=== PATIENT | male | born 1945 | race Caucasian/White ===

== ENCOUNTER → 2018-05-09 | Outpatient (CLI) | payer OTHER ==
[~2018-05-09] MED LIST: ASCO10007 PO; ASPI-1197 PO; CHONDROITIN PO; CINN500C PO; EYE SUPPLEMENT PO; GADODIAMIDE 10 MMOL/20 ML ML IV ONE; KRIL500C PO; MULTIVITAMIN PO; PUMP160C PO; UBID30CA11 PO; VITA100049 PO; VITAMIN B12 PO
== END | disposition home or self-care (01) ==
LOC: RAH 14:34
PROVIDERS: ATTEND Internal Medicine Critical Care Medicine
DX: R09.89 Other specified symptoms and signs involving the circulatory and respiratory systems (principal); R20.0 Anesthesia of skin
CPT/HCPCS: 70544; 70553; 93880; A9579

== ENCOUNTER → 2018-05-30 | Outpatient (CLI) | payer OTHER ==
[~2018-05-30] MED LIST changes: -GADODIAMIDE 10 MMOL/20 ML ML IV ONE
== END | disposition home or self-care (01) ==
LOC: SHCH 12:59
PROVIDERS: ATTEND Internal Medicine Cardiovascular Disease
DX: I10 Essential (primary) hypertension (principal)
CPT/HCPCS: 93306

== ENCOUNTER → 2018-06-29 | Outpatient (CLI) | payer OTHER | END | disposition home or self-care (01) | LOC: RAH 09:43 | PROVIDERS: ATTEND Internal Medicine Cardiovascular Disease | DX: Z13.6 Encounter for screening for cardiovascular disorders (principal) | CPT/HCPCS: 75571 ==

== ENCOUNTER → 2018-08-07 | Outpatient (CLI) | payer OTHER | END | disposition home or self-care (01) | LOC: RAH 07:41 | PROVIDERS: ATTEND Internal Medicine Cardiovascular Disease | DX: M47.22 Other spondylosis with radiculopathy, cervical region (principal); M48.02 Spinal stenosis, cervical region; M50.30 Other cervical disc degeneration, unspecified cervical region | CPT/HCPCS: 72141 ==

== ENCOUNTER 2018-08-22 08:57 | Observation (INO) | payer OTHER ==
[2018-08-20 12:07] VITALS: BP 139/68
[2018-08-20 12:29] LABS: APPEARANCE,URINE Clear (CLEAR); BILIRUBIN,URINE Negative (NEGATIVE); COLOR,URINE Yellow (YELLOW); GLUCOSE, URINE (UA) Negative (NEGATIVE); KETONES,URINE Negative (NEGATIVE); LEUKOCYTE ESTERASE ,URINE Small (NEGATIVE); NITRATE,URINE Negative (NEGATIVE); OCCULT BLOOD,URINE Negative (NEGATIVE); PROTEIN,URINE Negative (NEGATIVE); UROBILINOGEN,URINE 0.2 mg/dL (0.2-1.0)
[2018-08-20 12:31] LABS: BASOPHILS % (AUTO) 1.3 % (0.0-5.0); EOSINOPHILS % (AUTO) 4.6 % (0.0-8.0); HEMATOCRIT 38.6 % (42-54); LYMPHOCYTES % (AUTO) 28.5 % (21.0-51.0); MEAN CORPUSCULAR HEMOGLOBIN 30.1 pg (27.0-33.0); MEAN CORPUSCULAR HGB CONC 33.8 g/dL (32.0-36.0); MEAN CORPUSCULAR VOLUME 89.1 fL (79-99); MONOCYTES % (AUTO) 6.9 % (3.0-13.0); NEUTROPHILS % (AUTO) 58.7 % (40.0-77.0); PLATELET COUNT (AUTO) 167 K/uL (130-400); RED BLOOD CELL COUNT(AUTO) 4.33 MIL/uL (4.50-6.20); RED CELL DISTRIBUTION WIDTH 13.5 % (11.0-15.5); WHITE BLOOD COUNT (AUTO) 4.9 K/uL (4.8-10.8)
[2018-08-20 12:35] LABS: BACTERIA,URINE Rare /HPF (None Seen); RBC,URINE None Seen /HPF (0-1); SQUAMOUS EPITHELIAL CELL,UR Rare /HPF (0-2); WBC,URINE 0-1 /HPF (0-1)
[2018-08-20 12:37] LABS: CREATININE 1.1 mg/dL (0.5-1.5); POTASSIUM 4.2 mmol/L (3.5-5.1)
[2018-08-20 12:39] LABS: INR 0.94 (0.85-1.15); PARTIAL THROMBOPLASTIN TIME 29.3 SEC (26.3-35.5); PROTHROMBIN TIME 9.9 SEC (9.6-11.6)
[2018-08-22] VITALS (16 sets, daily range): BP systolic 119–139; BP diastolic 51–97
[~2018-08-22] VITALS: Ht 177.8 cm; Wt 90.8 kg
[~2018-08-22 08:57] MED LIST changes: +ACETAMINOPHEN 325 MG TAB PO PRN; +ATOR10TA69 PO; +BOSWELLIA; -CHONDROITIN PO; -CINN500C PO; +CYAN500011 PO; -EYE SUPPLEMENT PO; +GINK60TA7 PO; +GLUC-56 PO; +KRIL1CAP19 PO; -KRIL500C PO; +LEFL20TA18 PO; +LISI-613 PO; -MULTIVITAMIN PO; +NAPR-1192 PO; +OMEP20TA25 PO; -PUMP160C PO; +SAW PALMETTO PO; +SODIUM CHLORIDE 0.9% 500ML 500 ML IV SCH; +TAMS0.4C32 PO; +TURMERIC/CURCUMIN PO; +UBID100C45 PO; -UBID30CA11 PO; -VITA100049 PO; -VITAMIN B12 PO; +[UNRECOGNIZED DRUG - OTHER] PO
[2018-08-22] MEDS ORDERED: SODIUM CHLORIDE 0.9% 1000ML 1,000 ML IV ONE (09:10)
[2018-08-22] MEDS ORDERED: CINN1CAP PO (09:52)
[2018-08-22] MEDS ORDERED: HYDR12.54 PO (09:53)
--- NOTE | 2018-08-22 15:56 | NUR ---
report report given to Dory Fleming RN, pt still waiting to be taken to petroleum refinery laborer for procedure.
[2018-08-22] MEDS ORDERED: HEPARIN SODIUM 1000UNIT/ML 10ML VIAL ONE (16:12)
[2018-08-22] MEDS ORDERED: IOHEXOL-350 50ML VIAL IV ONE (16:12)
[2018-08-22] MEDS ORDERED: IOHEXOL 350 MG/ML 100ML INFUS..BTL IV ONE (16:12)
[2018-08-22] MEDS ORDERED: SODIUM BICARB 50MEQ 50ML VIAL ONE (16:12)
[2018-08-22] MEDS ORDERED: NITROGLYCERIN 5 MG/ML 10 ML VIAL IV ONE (16:12)
[2018-08-22] MEDS ORDERED: LIDOCAINE HCL-MPF 2% 5ML VIAL ONE (16:12)
[2018-08-22] MEDS ORDERED: MIDAZOLAM HCL 1 MG/ML 2ML VIAL ONE (16:44)
[2018-08-22] MEDS ORDERED: MEPERIDINE-PF 25 MG/ML SYG ONE (16:44)
[2018-08-22] MEDS ORDERED: IOHEXOL-350 75 ML VIAL IV ONE (17:15)
[2018-08-22] MEDS: SODIUM CHLORIDE 0.9% 1000ML 1,000 ML IV SCH (17:34)
[2018-08-22] MEDS ORDERED: ACETAMINOPHEN-CODEINE 300/30MG TAB PO PRN ×2 (17:45)
[2018-08-22] MEDS ORDERED: ONDANSETRON HCL 4 MG/2 ML VIAL IVP PRN (17:45)
[2018-08-22] MEDS ORDERED: TICAGRELOR 90 MG TABLET ONE (18:00)
--- NOTE | 2018-08-22 19:38 | NUR ---
REPORT GIVEN TO NURSE HILARY [id number]. PT AAOX3, DRESSING TO RT GROIN IS D/I. NO C/O CHEST PAIN OR DISTRESS. PERSONAL BELONGINGS TAKEN AT BEDSIDE WITH SPOUSE.
--- NOTE | 2018-08-22 20:15 | NUR ---
PT REPORT RECEIVED BY IRMA FROM [employer] DIRECTOR. PT ARRIVED VIA STRETCHED. STABLE. NO DISTRESS NOTED. VERIFIED SITE WITH [employer] DIRECTOR TEAM. RIGHT GROIN PERCLOSE DRESSING IN PLACE. NO TENDERNESS NOTED. NO PAIN STATED. NO DISCHARGE AT SITE. WILL CONTINUE TO MONITOR. STARTED IV FLUIDS PER DOCTORS ORDERS OF 150ML.HR
[2018-08-22] MEDS ORDERED: ONDANSETRON HCL 4 MG/2 ML VIAL IV PRN (20:30)
[2018-08-22] MEDS ORDERED: ACETAMINOPHEN 325 MG TAB PO PRN (20:30)
[2018-08-22] MEDS: TICAGRELOR 90 MG TABLET PO SCH (21:00)
--- NOTE | 2018-08-22 21:00 | NUR ---
PT ASSESSMENT- IN BED, NO DISTRESS NOTED .AAOX3. PERRLA. UPPER EXTREMITY IS STRONG. LOWER EXTREMITY WEAKNESS. AT BEDISDE. PT HAD MEDICATIONS AT BEDSIDE. RIGHT GROIN INCISION INTACT. PT AWARE OF BEDREST UNTIL THE AM AND IV FLUIDS UNTIL THE AM. USING URINAL NEEDED. ABLE TO TAKE MEDICATIONS DIRECTED. PT STATES NO PAIN. ACTIVE BOWEL SOUNDS.
[2018-08-22] MEDS: FAMOTIDINE/PF 20 MG/2 ML VIAL IV SCH (21:11)
[2018-08-22] MEDS: ALPRAZOLAM 0.5 MG TABLET PO SCH (21:11)
[2018-08-23] MEDS: SODIUM CHLORIDE 0.9% 1000ML 1,000 ML IV SCH (00:24)
[2018-08-23 03:55] LABS: HEMATOCRIT 32.5 % (42-54); MEAN CORPUSCULAR HEMOGLOBIN 30.9 pg (27.0-33.0); MEAN CORPUSCULAR HGB CONC 34.8 g/dL (32.0-36.0); MEAN CORPUSCULAR VOLUME 88.7 fL (79-99); PLATELET COUNT (AUTO) 137 K/uL (130-400); RED BLOOD CELL COUNT(AUTO) 3.66 MIL/uL (4.50-6.20); RED CELL DISTRIBUTION WIDTH 13.5 % (11.0-15.5); WHITE BLOOD COUNT (AUTO) 4.8 K/uL (4.8-10.8)
[2018-08-23 04:05] VITALS: BP 137/71
[2018-08-23 04:11] LABS: POTASSIUM 4.3 mmol/L (3.5-5.1)
[2018-08-23 08:03] VITALS: BP 134/62
[2018-08-23] MEDS: FAMOTIDINE/PF 20 MG/2 ML VIAL IV SCH (08:58)
[2018-08-23] MEDS: TICAGRELOR 90 MG TABLET PO SCH (08:58)
[2018-08-23] MEDS: ALPRAZOLAM 0.5 MG TABLET PO SCH (08:58)
[2018-08-23] MEDS ORDERED: ASPIRIN 81MG TAB.CHEW PO SCH (09:00)
[2018-08-23] MEDS ORDERED: PANTOPRAZOLE SODIUM 40 MG TABLET.DR PO SCH (09:00)
[2018-08-23] MEDS ORDERED: TAMSULOSIN HCL 0.4 MG CAP.ER.24H PO SCH (09:00)
[2018-08-23] MEDS ORDERED: CINNAMON BARK PO SCH (09:00)
[2018-08-23] MEDS ORDERED: CHROMIUM PICOLIN PO SCH (09:00)
[2018-08-23] MEDS ORDERED: LISINOPRIL 20 MG TABLET PO SCH (09:00)
[2018-08-23] MEDS ORDERED: NAPROXEN 250 MG TAB PO SCH (09:00)
[2018-08-23] MEDS ORDERED: HYDROCHLOROTHIAZIDE 25 MG TABLET PO SCH (09:00)
[2018-08-23] MEDS ORDERED: LEFLUNOMIDE 20 MG PO SCH (09:00)
[2018-08-23] MEDS ORDERED: ATORVASTATIN CALCIUM 10 MG TABLET PO SCH (09:00)
[2018-08-23] MEDS ORDERED: TICA90TA PO (09:26)
[2018-08-23 11:08] VITALS: BP 130/66
--- NOTE | 2018-08-23 11:37 | NUR ---
Patient discharged in stable condition. Patient given discharge instructions on all medications, appointment times and how to take new medications, side effects that may occur and when to call his Primary Care provider and when to call 911. IV removed from left arm. Tolerated well. Dressing Site to Right groin removed. dry and intact. No s/s of bleeding. Instructed if bleeding occurs apply pressure and come back to ER or call 911. Instructed on s/s of infections. No other questions or concerns.
== END 2018-08-23 11:56 | disposition home or self-care (01) ==
LOC: DAH 08:57 → DAHIP 08:58 → DAH 08:58 → 2DH 20:14
PROVIDERS: ADMIT Internal Medicine; ATTEND Internal Medicine
DX: I25.10 Atherosclerotic heart disease of native coronary artery without angina pectoris (principal); I25.82 Chronic total occlusion of coronary artery; E78.5 Hyperlipidemia, unspecified; I10 Essential (primary) hypertension; Z82.0 Family history of epilepsy and other diseases of the nervous system; Z82.3 Family history of stroke; Z82.49 Family history of ischemic heart disease and other diseases of the circulatory system; Z82.5 Family history of asthma and other chronic lower respiratory diseases; Z83.3 Family history of diabetes mellitus; Z79.01 Long term (current) use of anticoagulants
CPT/HCPCS: 36415 ×2; 71045; 80048 ×2; 80061; 81001; 85025; 85027; 85610; 85730; 93005; 93458; 96374; 96376; A4606; C1760; C1769; C1874 ×2; C1887; C1894; C9600 ×2; G0378 ×27; J1644 ×2; J2175; J2250; J3490 ×5; J7030 ×2; Q9965; Q9967 ×3; 99156; 99157

== ENCOUNTER 2018-09-24 05:47 | Observation (INO) | payer OTHER ==
[2018-09-21 11:11] VITALS: BP 121/61
[2018-09-21 11:14] LABS: BASOPHILS % (AUTO) 1.2 % (0.0-5.0); BILIRUBIN,URINE Negative (NEGATIVE); COLOR,URINE Yellow (YELLOW); GLUCOSE, URINE (UA) Negative (NEGATIVE); HEMATOCRIT 35.5 % (42-54); KETONES,URINE Negative (NEGATIVE); LEUKOCYTE ESTERASE ,URINE Negative (NEGATIVE); LYMPHOCYTES % (AUTO) 38.3 % (21.0-51.0); MEAN CORPUSCULAR HEMOGLOBIN 30.1 pg (27.0-33.0); MEAN CORPUSCULAR HGB CONC 34.2 g/dL (32.0-36.0); MEAN CORPUSCULAR VOLUME 88.2 fL (79-99); MONOCYTES % (AUTO) 8.3 % (3.0-13.0); NEUTROPHILS % (AUTO) 47.2 % (40.0-77.0); NITRATE,URINE Negative (NEGATIVE); NUCLEATED RED BLOOD CELLS 0.1 % (0.0-0.19); OCCULT BLOOD,URINE Negative (NEGATIVE); PLATELET COUNT (AUTO) 147 K/uL (130-400); PROTEIN,URINE Negative (NEGATIVE); RED BLOOD CELL COUNT(AUTO) 4.03 MIL/uL (4.50-6.20); RED CELL DISTRIBUTION WIDTH 13.2 % (11.0-15.5); UROBILINOGEN,URINE 0.2 mg/dL (0.2-1.0); WHITE BLOOD COUNT (AUTO) 4.2 K/uL (4.8-10.8)
[2018-09-21 11:25] LABS: CREATININE 1.1 mg/dL (0.5-1.5); POTASSIUM 4.1 mmol/L (3.5-5.1)
[2018-09-21 11:29] LABS: APPEARANCE,URINE CLEAR (CLEAR)
[2018-09-21 11:45] LABS: INR 0.92 (0.85-1.15); PARTIAL THROMBOPLASTIN TIME 29.6 SEC (26.3-35.5); PROTHROMBIN TIME 9.7 SEC (9.6-11.6)
[~2018-09-24] VITALS: Ht 175.3 cm; Wt 90.4 kg
[2018-09-24] VITALS (11 sets, daily range): BP systolic 97–131; BP diastolic 59–70
[~2018-09-24 05:47] MED LIST changes: -ACETAMINOPHEN 325 MG TAB PO PRN; +ASPI-1181 PO; -ASPI-1197 PO; +CINN1CAP PO; +HYDR12.54 PO; -SODIUM CHLORIDE 0.9% 500ML 500 ML IV SCH; +TICA90TA PO; +TYLENOL ARTHRITIS PO; +[UNRECOGNIZED DRUG - OTHER] PO
[2018-09-24] MEDS ORDERED: SODIUM CHLORIDE 0.9% 1000ML 1,000 ML IV ONE (06:06)
--- NOTE | 2018-09-24 06:15 | NUR ---
RECEIVED AWAKE,NO COMPLAINTS ,IN GOOD SPIRITS,,,ACCOMPANIED BY SPOUSE,,MADE COMFORTABLE IN BED ...,,INSTRUCTIONS PRE AND POST CATH ,AWARE TO REMAIN FLAT AND NOT PICK HEAD UP UNTIL INSTRUCTED BY NURSE AFTER PROCEDURE,VERBALIZES UNDERSTANDING ,WITH WEAKNESS TO LT HAND ,STATES DUE TO ARTHRITIS,COMFORTABLE ,CALL FUNEZ IN REACH Addendum: 09/24/18 at 0743 by SOY LUX LVN LVN NOTICED FEET COOL AND PALE ON ASSESSMENT,,PALPABLE PULES
--- NOTE | 2018-09-24 07:20 | NUR ---
STARTED IV TO RT FOREARM WITH #22 BY RICK HINOJOSA
[2018-09-24] MEDS ORDERED: HEPARIN SODIUM 1000UNIT/ML 10ML VIAL ONE (07:21)
[2018-09-24] MEDS ORDERED: SODIUM BICARB 50MEQ 50ML VIAL ONE (07:21)
[2018-09-24] MEDS ORDERED: IOHEXOL 350 MG/ML 100ML INFUS..BTL IV ONE (07:22)
[2018-09-24] MEDS ORDERED: LIDOCAINE HCL 2% 20ML ONE (07:22)
[2018-09-24] MEDS ORDERED: NITROGLYCERIN 5 MG/ML 10 ML VIAL IV ONE (07:22)
--- NOTE | 2018-09-24 07:29 | NUR ---
TO DRAW TENDER
[2018-09-24] MEDS ORDERED: MIDAZOLAM HCL 1 MG/ML 2ML VIAL ONE ×2 (07:47→08:02)
[2018-09-24] MEDS ORDERED: MEPERIDINE-PF 25 MG/ML SYG ONE ×2 (07:47→08:02)
[2018-09-24] MEDS ORDERED: METOPROLOL TARTRATE 1 MG/ML 5ML VIAL IV ONE (08:13)
[2018-09-24] MEDS ORDERED: AMIODARONE HCL 50 MG/ML 3 ML VIAL ONE (08:16)
[2018-09-24] MEDS: SODIUM CHLORIDE 0.9% 1000ML 1,000 ML IV SCH ×2 (08:34→18:34)
[2018-09-24] MEDS ORDERED: ATROPINE SULFATE 0.1 MG/ML 10 ML SYG IVP ONE (08:35)
[2018-09-24] MEDS ORDERED: PROPOFOL 10 MG/ML 20ML VIAL IV ONE (08:35)
[2018-09-24] MEDS ORDERED: ACETAMINOPHEN 325 MG TAB PO PRN (08:45)
[2018-09-24] MEDS ORDERED: ACETAMINOPHEN-CODEINE 300/30MG TAB PO PRN (08:45)
[2018-09-24] MEDS: SAW PALMETTO 1200 MG PO SCH (09:00)
[2018-09-24] MEDS: HYDROCHLOROTHIAZIDE 25 MG TABLET PO SCH (09:00)
[2018-09-24] MEDS: TAMSULOSIN HCL 0.4 MG CAP.ER.24H PO SCH (09:00)
[2018-09-24] MEDS: COQ PO SCH (09:00)
[2018-09-24] MEDS: [UNRECOGNIZED DRUG - OTHER] PO SCH (09:00)
[2018-09-24] MEDS: ATORVASTATIN CALCIUM 10 MG TABLET PO SCH (09:00)
[2018-09-24] MEDS: LISINOPRIL 20 MG TABLET PO SCH (09:00)
--- NOTE | 2018-09-24 09:15 | NUR ---
PT ARRIVED FROM [facility],POST PTCA WITH STENT TO PROXIMAL RCA. RIGHT GROIN NOTED SOFT, NO BLEEDING, NO HEMATOMA. PULSES PALPABLE. SKIN WARM TO TOUCH. POC DISCUSSED WITH PT AND SPOUSE. BEDREST X 6 HRS. WILL CONT TO MONITOR. TELE WITH SB 58. PER REPORT, PT WENT INTO A-FIB POST STENT PLACEMENT. PRIOR TO COMING TO ROOM, PT WAS CARDIOVERTED AT [facility]. WILL CONT TO MONITOR.
[2018-09-24] MEDS: RIVAROXABAN 20 MG TABLET PO SCH (11:11)
[2018-09-24] MEDS: PANTOPRAZOLE SODIUM 40 MG TABLET.DR PO SCH (11:12)
--- NOTE | 2018-09-24 19:30 | NUR ---
NOTIFIED iNa BRIGGS NP ABOUT PT PENDING VISIT FROM DR. DAVIS.
[2018-09-24] MEDS: TICAGRELOR 90 MG TABLET PO SCH (20:03)
--- NOTE | 2018-09-24 21:00 | NUR ---
PT RIGHT GROIN SITE IS SOFT, NON TENDER. NO DRAINAGE NOTED. NO PAIN STATED. BEDREST IS OVER. PT IS ABLE TO AMBULATE WITHOUT ASSISTANCE. CONTINUES ON IV FLUIDS AT 100ML/HR UNTIL THE AM. RED DRAINAGE WHEN PT GOT OUT OF BED, IT WAS NOTED TO BE COMING FROM HIS SCROTUM. PT STATES AT TIMES DUE TO MEDICATIONS HE GETS BLISTERS THAT LEAD TO RED DRAINAGE IN HIS BELKYS AREA. STATES NO DISCOMFORT OR PAIN. OFFERED TO APPLY CREAM TO ALLEVIATE REDNESS, PT REFUSED. OTHERWISE, PT IS STABLE. CLEAR LUNG SOUNDS. ACTIVE BOWEL SOUNDS. AAOX3. PERRLA. PENDING DISCHARGE IN THE AM. CURRENTLY SINUS JESSE. NO EPISODES OF AFIB.
[2018-09-25 03:49] LABS: HEMATOCRIT 31.5 % (42-54); MEAN CORPUSCULAR HEMOGLOBIN 30.8 pg (27.0-33.0); MEAN CORPUSCULAR HGB CONC 34.5 g/dL (32.0-36.0); MEAN CORPUSCULAR VOLUME 89.4 fL (79-99); PLATELET COUNT (AUTO) 135 K/uL (130-400); RED BLOOD CELL COUNT(AUTO) 3.53 MIL/uL (4.50-6.20); RED CELL DISTRIBUTION WIDTH 13.3 % (11.0-15.5); WHITE BLOOD COUNT (AUTO) 5.7 K/uL (4.8-10.8)
[2018-09-25 03:55] VITALS: BP 140/70
[2018-09-25 04:10] LABS: CREATININE 1.1 mg/dL (0.5-1.5); POTASSIUM 3.8 mmol/L (3.5-5.1)
[2018-09-25] MEDS: SODIUM CHLORIDE 0.9% 1000ML 1,000 ML IV SCH (04:41)
[2018-09-25] MEDS ORDERED: POTASSIUM CHLORIDE 20 MEQ ERTAB PO PRN (05:00)
[2018-09-25] MEDS ORDERED: POTASSIUM CHLORIDE 20MEQ/100ML 100 ML IV PRN (05:00)
[2018-09-25] MEDS ORDERED: LIDOCAINE HCL-MPF 1% 2ML VIAL IVP PRN (05:00)
[2018-09-25] MEDS ORDERED: POTASSIUM CHLORIDE 10% ELIXIR 20 MEQ/15 ML UDCUP PO PRN (05:00)
[2018-09-25] MEDS ORDERED: POTASSIUM CHLORIDE 20 MEQ ERTAB PO ONE (05:34)
--- NOTE | 2018-09-25 07:36 | NUR ---
DR. Matty MATA IN ROOM ASSESSING/SPEAKING WITH PT. RE:PLAN OF CARE. QUESTIONS ANSWERED BY DR. Matty MATA.
[2018-09-25 07:47] VITALS: BP 130/71
[2018-09-25] MEDS: ATORVASTATIN CALCIUM 10 MG TABLET PO SCH (08:49)
[2018-09-25] MEDS: TAMSULOSIN HCL 0.4 MG CAP.ER.24H PO SCH (08:49)
[2018-09-25] MEDS: LISINOPRIL 20 MG TABLET PO SCH (08:49)
[2018-09-25] MEDS: HYDROCHLOROTHIAZIDE 25 MG TABLET PO SCH (08:49)
[2018-09-25] MEDS: RIVAROXABAN 20 MG TABLET PO SCH (08:49)
[2018-09-25] MEDS: PANTOPRAZOLE SODIUM 40 MG TABLET.DR PO SCH (08:49)
[2018-09-25] MEDS: TICAGRELOR 90 MG TABLET PO SCH (08:50)
--- NOTE | 2018-09-25 08:50 | NUR ---
RESTING IN BED WITH HOB AT 30 DEGREES, RESP.'S EVEN AND UNLABORED. AAOX3. DENIES ANY C/O SOB, DENIES ANY CURRENT PAIN. ABD SOFT WITH (+) BOWEL SOUNDS, DENIES ANY C/O N/V. RIGHT GROIN WITH LIGHT DRSG IN PLACE, D/I; AREA SOFT, NO ECCHYMOSIS OR HEMATOMA NOTED. VOIDS, W/O C/O. COMPLETE ASSESSMENT DONE. CALL LIGHT WITHIN REACH, VERBALIZED ABILITY TO USE. BED LOW, SIDE RAILS UP X2.
[2018-09-25] MEDS: [UNRECOGNIZED DRUG - OTHER] PO SCH (08:54)
[2018-09-25] MEDS: SAW PALMETTO 1200 MG PO SCH (08:54)
[2018-09-25] MEDS: COQ PO SCH (08:54)
[2018-09-25] MEDS ORDERED: RIVA20TA PO (10:58)
[2018-09-25] MEDS ORDERED: TICA90TA PO (10:58)
[2018-09-25 11:21] VITALS: BP 127/62
--- NOTE | 2018-09-25 12:30 | NUR ---
HL REMOVED, CATHETER INTACT. DISCHARGE INSTRUCTIONS GIVEN, VERBALIZED UNDERSTANDING.
--- NOTE | 2018-09-25 12:40 | NUR ---
DISCHARGED HOME VIA W/C WITH BELONGINGS INCLUDING PHONE AND IPAD; ACCOMPANIED BY THIS NURSE. ASSISTED TO VEHICLE BY THIS NURSE.
== END 2018-09-25 12:54 | disposition home or self-care (01) ==
LOC: DAH 05:47 → DAHIP 05:48 → 2DH 09:15
PROVIDERS: ADMIT Internal Medicine Cardiovascular Disease; ATTEND Internal Medicine Cardiovascular Disease
DX: I25.10 Atherosclerotic heart disease of native coronary artery without angina pectoris (principal); I25.82 Chronic total occlusion of coronary artery; I48.0 Paroxysmal atrial fibrillation; N40.0 Benign prostatic hyperplasia without lower urinary tract symptoms; K21.9 Gastro-esophageal reflux disease without esophagitis; Z79.899 Other long term (current) drug therapy
CPT/HCPCS: 36415 ×2; 80048 ×2; 81003; 85025; 85027; 85610; 85730; 92960; 93005 ×2; 93454; C1760 ×2; C1769; C1874; C1887; C1894; C9600; G0378 ×31; J0282; J0461; J1644 ×2; J2175 ×2; J2250 ×2; J2704; J3490 ×4; J7030 ×3; Q9965; Q9967; 99156; 99157

== ENCOUNTER → 2019-02-20 | Outpatient (CLI) | payer OTHER ==
[~2019-02-20] MED LIST changes: +RIVA20TA PO
== END | disposition home or self-care (01) ==
LOC: RAH 10:53
PROVIDERS: ATTEND Internal Medicine Critical Care Medicine
DX: S92.512A Displaced fracture of proximal phalanx of left lesser toe(s), initial encounter for closed fracture (principal); X58.XXXA Exposure to other specified factors, initial encounter; Y93.89 Activity, other specified; Y92.89 Other specified places as the place of occurrence of the external cause; Y99.8 Other external cause status
CPT/HCPCS: 73630

== ENCOUNTER → 2019-02-25 | Outpatient (CLI) | payer OTHER ==
[~2019-02-25] MED LIST changes: +GADODIAMIDE 10 MMOL/20 ML VIAL IV ONE
== END | disposition home or self-care (01) ==
LOC: RAH 13:41
PROVIDERS: ATTEND Internal Medicine Critical Care Medicine
DX: L03.116 Cellulitis of left lower limb (principal)
CPT/HCPCS: 73720; A9579

== ENCOUNTER → 2019-03-01 | Outpatient (CLI) | payer OTHER ==
[~2019-03-01] MED LIST changes: -GADODIAMIDE 10 MMOL/20 ML VIAL IV ONE
== END | disposition home or self-care (01) ==
LOC: RAH 14:17
PROVIDERS: ATTEND Internal Medicine Critical Care Medicine
DX: M86.179 Other acute osteomyelitis, unspecified ankle and foot (principal)
CPT/HCPCS: 93922; 93926

== ENCOUNTER → 2020-03-23 | Outpatient (CLI) | payer OTHER ==
[~2020-03-23] MED LIST changes: +ASCO100031 PO; -ASCO10007 PO; -ASPI-1181 PO; +ASPI-1443 PO; +IOHEXOL-350 50ML VIAL IV ONE
== END | disposition home or self-care (01) ==
LOC: RAH 07:29
PROVIDERS: ATTEND Internal Medicine Cardiovascular Disease
DX: I65.29 Occlusion and stenosis of unspecified carotid artery (principal); I10 Essential (primary) hypertension
CPT/HCPCS: 70496; 70498; Q9967

== ENCOUNTER → 2020-03-26 | Outpatient (CLI) | payer OTHER ==
[~2020-03-26] MED LIST changes: -IOHEXOL-350 50ML VIAL IV ONE
== END | disposition home or self-care (01) ==
LOC: SHCH 13:57
PROVIDERS: ATTEND Internal Medicine Cardiovascular Disease
DX: R60.9 Edema, unspecified (principal)
CPT/HCPCS: 93925; 93970

== ENCOUNTER 2024-03-01 07:49 | Day surgery (SDC) | payer OTHER ==
[2024-02-28 09:42] VITALS: BP 139/68; PULSE 50; RESP 19
[2024-02-28 09:54] LABS: BASOPHILS # (AUTO) 0.03 K/uL (0.00-0.20); BASOPHILS % (AUTO) 0.6 % (0.0-5.0); EOSINOPHILS # (AUTO) 0.18 K/uL (0.00-0.70); EOSINOPHILS % (AUTO) 3.3 % (0.0-8.0); HEMATOCRIT 39.2 % (42-54); IMMATURE GRANULOCYTE ABSOLUTE 0.01 K/uL (0-1); LYMPHOCYTES # (AUTO) 2.3 K/uL (1.0-4.8); LYMPHOCYTES % (AUTO) 42.5 % (21.0-51.0); MEAN CORPUSCULAR HGB CONC 34.4 g/dL (32.0-36.0); MEAN CORPUSCULAR VOLUME 90.1 fL (79-99); MONOCYTES # (AUTO) 0.4 K/uL (0.1-1.0); MONOCYTES % (AUTO) 6.6 % (3.0-13.0); NEUTROPHILS # (AUTO) 2.6 K/uL (1.8-7.7); NEUTROPHILS % (AUTO) 46.8 % (40.0-77.0); PLATELET COUNT (AUTO) 178 K/uL (130-400); RED BLOOD CELL COUNT(AUTO) 4.35 MIL/uL (4.50-6.20); RED CELL DISTRIBUTION WIDTH 12.7 % (11.0-15.5); WHITE BLOOD COUNT (AUTO) 5.4 K/uL (4.8-10.8)
[2024-02-28 10:03] LABS: APPEARANCE,URINE CLEAR (CLEAR); BILIRUBIN,URINE NEGATIVE (NEGATIVE); COLOR,URINE LIGHT-YELLOW (YELLOW); GLUCOSE, URINE (UA) NEGATIVE (NEGATIVE); KETONES,URINE NEGATIVE (NEGATIVE); LEUKOCYTE ESTERASE ,URINE NEGATIVE Leu/uL (NEGATIVE); NITRATE,URINE NEGATIVE (NEGATIVE); OCCULT BLOOD,URINE NEGATIVE (NEGATIVE); PH,URINE 5.5 (5.0-8.0); PROTEIN,URINE NEGATIVE (NEGATIVE); UROBILINOGEN,URINE 0.2 mg/dL (0.2-1.0)
[2024-02-28 10:08] LABS: CREATININE 1.1 mg/dL (0.5-1.3)
[2024-02-28 10:15] LABS: INR 0.97 (0.85-1.15); PROTHROMBIN TIME 10.5 SEC (9.6-11.6)
[2024-02-28 10:17] LABS: PARTIAL THROMBOPLASTIN TIME 28.7 SEC (26.3-35.5)
[2024-02-28 10:18] LABS: ADD UA MICROSCOPIC NO
[2024-02-28 10:23] LABS: B-TYPE NATRIURETIC PEPTIDE 8 pg/mL (0-100)
[~2024-03-01] VITALS: Ht 179.1 cm; Wt 93.5 kg
[2024-03-01] VITALS (8 sets, daily range): BP systolic 111–143; BP diastolic 58–83; PULSE 45–59; RESP 14–18
[~2024-03-01 07:49] MED LIST changes: +APIX5TAB PO; -ASCO100031 PO; -ATOR10TA69 PO; +ATOR40TA69 PO; -BOSWELLIA; -CINN1CAP PO; -CYAN500011 PO; +DOXA2TAB2 PO; +FINA5TAB41 PO; -GINK60TA7 PO; -GLUC-56 PO; -HYDR12.54 PO; -KRIL1CAP19 PO; -LEFL20TA18 PO; +LEVO50TA11 PO; -LISI-613 PO; +METO-408 PO; -NAPR-1192 PO; -OMEP20TA25 PO; -RIVA20TA PO; -SAW PALMETTO PO; +TADA20TA70 PO; -TAMS0.4C32 PO; -TICA90TA PO; -TURMERIC/CURCUMIN PO; -TYLENOL ARTHRITIS PO; -UBID100C45 PO; -[UNRECOGNIZED DRUG - OTHER] PO; -[UNRECOGNIZED DRUG - OTHER] PO
[2024-03-01] MEDS: 0.9%NACL 1000ML 1,000 ML IV SCH (09:22)
[2024-03-01] MEDS ORDERED: SODIUM BICARB 50MEQ 50ML VIAL 50 ML ONE (12:48)
[2024-03-01] MEDS ORDERED: LIDOCAINE HCL 400MG/20ML VIAL ONE (12:48)
[2024-03-01] MEDS ORDERED: IOHEXOL 350 MG/ML 100ML INFUS..BTL IV ONE ×2 (12:48→12:51)
[2024-03-01] MEDS ORDERED: IOHEXOL-350 50ML VIAL IV ONE (12:48)
[2024-03-01] MEDS ORDERED: HEPARIN 10,000 UNIT/10ML (1,000 UNIT/ML) VIAL ONE (12:48)
[2024-03-01] MEDS ORDERED: NITROGLYCERIN 50MG VIAL ONE (12:54)
[2024-03-01] MEDS ORDERED: NICARDIPINE 25MG INJ IV ONE (13:10)
[2024-03-01] MEDS ORDERED: MIDAZOLAM HCL 1 MG/ML 2ML VIAL ONE ×3 (13:10→14:01)
[2024-03-01] MEDS ORDERED: MEPERIDINE-PF 25 MG/ML SYG ONE ×3 (13:10→14:01)
[2024-03-01] MEDS ORDERED: ATROPINE 1MG SYG IVP ONE (13:25)
[2024-03-01] MEDS ORDERED: CLOPIDOGREL 300MG TAB ONE (14:47)
[2024-03-01] MEDS ORDERED: 0.9%NACL 1000ML 1,000 ML IV SCH (15:00)
[2024-03-01] MEDS ORDERED: CLOP-31 PO (17:14)
== END 2024-03-01 19:30 | disposition home or self-care (01) ==
LOC: DAH 07:49
PROVIDERS: ATTEND Internal Medicine Cardiovascular Disease
DX: I25.118 Atherosclerotic heart disease of native coronary artery with other forms of angina pectoris (principal); I10 Essential (primary) hypertension; K21.9 Gastro-esophageal reflux disease without esophagitis; Z86.73 Personal history of transient ischemic attack (TIA), and cerebral infarction without residual deficits; M19.90 Unspecified osteoarthritis, unspecified site; Z85.828 Personal history of other malignant neoplasm of skin; Z79.01 Long term (current) use of anticoagulants; Z79.82 Long term (current) use of aspirin; Z79.899 Other long term (current) drug therapy
CPT/HCPCS: 80048; 83880; 85025; 85610; 85730; 81003; 36415; 71045; 93005; 93458; 93306; C9600 ×2; Q9965 ×2; C1887 ×4; C1769 ×2; C1725 ×2; C1874 ×3; A4649; C1894; A4663; J3490 ×4; J7030; J0461; J1644 ×2; J2250 ×3; J2175 ×3; Q9967 ×2; A4215; A4222; A4221; A4216; A4606; A4223 ×3; 99156; 99157

== ENCOUNTER → 2025-03-17 | Outpatient (CLI) | payer OTHER ==
[~2025-03-17] MED LIST changes: -ASPI-1443 PO; +CLOP-31 PO; -TADA20TA70 PO
--- NOTE | 2025-03-18 07:00 | HMCIMG ---
EXAMINATION: ULTRASOUND OF THE RETROPERITONEUM. CLINICAL HISTORY: Pain. COMPARISON: None. TECHNIQUE: Real-time grayscale ultrasound images of the kidneys. FINDINGS: The kidneys are normal in caliber, the right kidney measures 10.8 x 4.8 x 3.8 cm and the left kidney measures 10.5 x 6.1 x 4.6 cm in its craniocaudal, AP, and transverse dimensions respectively. There is normal renal cortical thickness, and cortical echogenicity. There is no renal calculus or hydronephrosis. There is a simple cortical cyst that measures 1.6 x 1.4 x 1.7 cm in the left renal mid pole. The urinary bladder is partially distended with normal wall thickness (0.54 cm). There are no calculi in the urinary bladder. IMPRESSION: Left renal simple cortical cyst. No hydronephrosis. /[place]att[place]
== END | disposition home or self-care (01) ==
LOC: RAH 15:00
PROVIDERS: ATTEND Internal Medicine Critical Care Medicine
DX: N28.1 Cyst of kidney, acquired (principal); R10.9 Unspecified abdominal pain
CPT/HCPCS: 76770